=== PATIENT | female | born 1970 | race African-American/Black ===

== ENCOUNTER 2023-07-30 02:37 | Inpatient (IN) | payer BC, SELFPAY ==
[2023-07-30 02:44] VITALS: BMI 28.7
[2023-07-30] MEDS ORDERED: HumaLOG 300 UNITS/3 ML VIAL SC PRN (03:43)
[2023-07-30] MEDS ORDERED: Dextrose 50% Abboject 50 ML SYRINGE SLOW IVP PRN (03:43)
[2023-07-30] MEDS ORDERED: Dextrose 5% in Water 1,000 ML IV PRN (03:43)
[2023-07-30] MEDS ORDERED: Glucagon 1 MG/ML KIT IM PRN (03:43)
[2023-07-30 07:43] LABS: #Monocytes 0.6 thou/uL (0.11-0.59); %Basophils 0.3 % (0.0-1.0); %Eosinophils 0.3 % (0.0-10.0); %Lymphocytes 27.5 % (21.0-51.0); %Monocytes 5.6 % (0.0-10.0); Hematocrit 34.5 % (36.0-47.0); Hemoglobin 11.3 g/dL (12.0-16.0); Mean Corpuscular HGB CONC 32.8 g/dL (32.0-36.0); Mean Corpuscular Hemoglobin 28.6 pg (27.0-31.0); Mean Corpuscular Volume 87.3 fl (78.0-98.0); Mean Platelet Volume 10.9 fL (7.4-10.4); Platelet Count 404 10x3/uL (130-400); RBC Distribution Width 13.5 % (11.5-14.5); Red Blood Cell (RBC) Count 3.95 mill/uL (4.20-5.40); White Blood Cell (WBC) Count 10.5 10x3/uL (4.8-10.8)
[2023-07-30 07:50] LABS: Hemoglobin A1c 7.4 % (4.0-6.0)
[2023-07-30 07:58] LABS: ALT (SGPT) 10 U/L (8-55); AST (SGOT) 12 U/L (5-34); Albumin 2.3 g/dL (3.5-5.0); Alkaline Phosphatase 90 U/L (40-110); Anion Gap 12 mmol/L (10-20); BUN (Urea Nitrogen) 16 mg/dL (9.8-20.1); Bilirubin, Total 0.5 mg/dL (0.2-1.2); Calc. Creatinine Clearance 86 mL/min (70-130); Calcium 8.3 mg/dL (7.8-10.44); Carbon Dioxide 23 mmol/L (22-29); Chloride 109 mmol/L (98-107); Estimated GFR 75; Globulin 3.6 g/dL (2.4-3.5); Glucose 173 mg/dL (70-105); Potassium 3.5 mmol/L (3.5-5.1); Protein, Total 5.9 g/dL (6.0-8.3); Sodium 140 mmol/L (136-145)
[2023-07-30 08:09] LABS: Magnesium 2.3 mg/dL (1.6-2.6)
[2023-07-30 08:23] LABS: Free T4 (Free Thyroxine) 1.11 ng/dL (0.70-1.48); Thyroid Stimulating Hormone 1.6967 uIU/mL (0.35-4.94)
[2023-07-30] MEDS ORDERED: Non-Formulary Item 1 EACH (Ferrous Sulfate [Ferrous Sulfate] 325 MG Tab) PO SCH (09:00)
[2023-07-30] MEDS: Amlodipine 10 MG TAB PO SCH (09:16)
[2023-07-30] MEDS: Atorvastatin Calcium 40 MG TAB PO SCH (09:16)
[2023-07-30] MEDS: Famotidine 20 MG TAB PO SCH (09:16)
[2023-07-30] MEDS: Alogliptin 6.25 MG TAB PO SCH (09:17)
[2023-07-30] MEDS: Insulin Glargine 30 UNITS/0.3 ML VIAL SC SCH ×2 (09:18→20:58)
[2023-07-30] MEDS: metFORMIN 500 MG TAB PO SCH (09:18)
[2023-07-30] MEDS: Empagliflozin 10 MG TAB PO SCH (09:18)
[2023-07-30 10:18] LABS: Creatinine, Urine 69.93 mg/dL (47-110)
[2023-07-30] MEDS: Cosyntropin 250 MCG VIAL SLOW IVP SCH (11:47)
[2023-07-30] MEDS: Albumin 25% 25 GM (100 mL) BOT IVPB SCH (11:48)
[2023-07-30] MEDS: Acetaminophen 325 MG TAB PO PRN (12:17)
[2023-07-30] MEDS: Ondansetron ODT 4 MG TAB PO PRN (12:18)
[2023-07-30] MEDS: HumaLOG 300 UNITS/3 ML VIAL SC PRN (12:18)
[2023-07-30] MEDS ORDERED: Cosyntropin 250 MCG VIAL SLOW IVP SCH (13:15)
[2023-07-30] MEDS: Losartan 25 MG TAB PO SCH ×2 (13:30→20:57)
[2023-07-30] MEDS: Dexamethasone 10 MG in Sodium Chloride 0.9% 50 ML IVPB SCH (15:01)
[2023-07-30] MEDS: Carvedilol 6.25 MG TAB PO SCH (17:26)
[2023-07-30] MEDS: Lactated Ringer's 1,000 ML IV SCH (17:36)
[2023-07-31 07:59] LABS: #Monocytes 0.8 thou/uL (0.11-0.59); #Neutrophils 9.5 thou/uL (1.40-6.50); %Basophils 0.2 % (0.0-1.0); %Eosinophils 0.1 % (0.0-10.0); %Lymphocytes 20.9 % (21.0-51.0); %Monocytes 6.4 % (0.0-10.0); %Neutrophils 71.9 % (42.0-75.0); Hematocrit 31.7 % (36.0-47.0); Hemoglobin 10.5 g/dL (12.0-16.0); Mean Corpuscular HGB CONC 33.1 g/dL (32.0-36.0); Mean Corpuscular Hemoglobin 28.8 pg (27.0-31.0); Mean Corpuscular Volume 86.8 fl (78.0-98.0); Mean Platelet Volume 9.7 fL (7.4-10.4); Platelet Count 350 10x3/uL (130-400); RBC Distribution Width 13.2 % (11.5-14.5); Red Blood Cell (RBC) Count 3.65 mill/uL (4.20-5.40); White Blood Cell (WBC) Count 13.1 10x3/uL (4.8-10.8)
[2023-07-31 08:15] LABS: Anion Gap 13 mmol/L (10-20); BUN (Urea Nitrogen) 19 mg/dL (9.8-20.1); Calc. Creatinine Clearance 92 mL/min (70-130); Calcium 8.3 mg/dL (7.8-10.44); Carbon Dioxide 24 mmol/L (22-29); Chloride 105 mmol/L (98-107); Estimated GFR 81; Glucose 125 mg/dL (70-105); Potassium 3.6 mmol/L (3.5-5.1); Sodium 138 mmol/L (136-145)
[2023-07-31] MEDS: Ferrous Sulfate 325 MG TAB PO SCH (08:24)
[2023-07-31] MEDS: Hydrochlorothiazide 25 MG TAB PO SCH (15:12)
[2023-08-01 05:55] LABS: #Eosinphils 0.2 thou/uL (0.0-0.7); #Monocytes 0.6 thou/uL (0.11-0.59); #Neutrophils 7.6 thou/uL (1.40-6.50); %Basophils 0.2 % (0.0-1.0); %Eosinophils 1.4 % (0.0-10.0); %Lymphocytes 26.7 % (21.0-51.0); %Monocytes 5.3 % (0.0-10.0); Hematocrit 32.3 % (36.0-47.0); Hemoglobin 10.6 g/dL (12.0-16.0); Mean Corpuscular HGB CONC 32.8 g/dL (32.0-36.0); Mean Corpuscular Hemoglobin 28.2 pg (27.0-31.0); Mean Corpuscular Volume 85.9 fl (78.0-98.0); Platelet Count 356 10x3/uL (130-400); RBC Distribution Width 13.2 % (11.5-14.5); Red Blood Cell (RBC) Count 3.76 mill/uL (4.20-5.40); White Blood Cell (WBC) Count 11.6 10x3/uL (4.8-10.8)
[2023-08-01 06:07] LABS: Anion Gap 11 mmol/L (10-20); BUN (Urea Nitrogen) 21 mg/dL (9.8-20.1); Calc. Creatinine Clearance 95 mL/min (70-130); Calcium 8.1 mg/dL (7.8-10.44); Carbon Dioxide 26 mmol/L (22-29); Chloride 105 mmol/L (98-107); Estimated GFR 83; Glucose 80 mg/dL (70-105); Potassium 3.3 mmol/L (3.5-5.1); Sodium 139 mmol/L (136-145)
[2023-08-01 08:21] VITALS: TEMP 98.3
[2023-08-01] MEDS: Hydrochlorothiazide 25 MG TAB PO SCH (09:29)
[2023-08-01 13:58] VITALS: BP 94/55
[2023-08-01 16:15] LABS: Kappa Lambda Light Chain Ratio 1.88 (0.26-1.65); Kappa Light Chains 65.4 mg/L (3.3-19.4); Lambda Light Chain 34.8 mg/L (5.7-26.3)
[2023-08-01 17:22] LABS: 24 Hr Creatinine 438.7 mg/24 hr (710-1650); Creatinine, Urine 42.8 mg/dL (47-110)
[2023-08-02 15:18] LABS: IgA - Total IgA (Sendout) 284 mg/dL (87-352); Immunoglobulin - G (Sendout) 1018 mg/dL (586-1602); Immunoglobulin - M (Sendout) 140 mg/dL (26-217)
[2023-08-02 16:12] LABS: A/G Ratio 1.1 (0.7-1.7); Albumin 2.8 g/dL (2.9-4.4); Alpha 1 0.2 g/dL (0.0-0.4); Alpha 2 0.6 g/dL (0.4-1.0); Beta 0.8 g/dL (0.7-1.3); Globulin, Total 2.6 g/dL (2.2-3.9); M-Spike Not Observed g/dL (Not Observed)
== END 2023-08-01 13:35 | disposition home or self-care (01) | DRG 312 ==
LOC: 2NO 02:37 → OBSVTOIN 08:07
PROVIDERS: ADMIT Student in an Organized Health Care Education/Training Program; ATTEND Hospitalist
PROC: 30233J1 Transfusion of Nonautologous Serum Albumin into Peripheral Vein, Percutaneous Approach (ICD-10-PCS; principal; 2023-07-30)
DX: I95.1 Orthostatic hypotension (principal); N17.9 Acute kidney failure, unspecified; E86.0 Dehydration; I12.9 Hypertensive chronic kidney disease with stage 1 through stage 4 chronic kidney disease, or unspecified chronic kidney disease; R32 Unspecified urinary incontinence; E88.09 Other disorders of plasma-protein metabolism, not elsewhere classified; K76.0 Fatty (change of) liver, not elsewhere classified; R80.9 Proteinuria, unspecified; E11.22 Type 2 diabetes mellitus with diabetic chronic kidney disease; D63.1 Anemia in chronic kidney disease; N18.2 Chronic kidney disease, stage 2 (mild); E87.6 Hypokalemia; Z79.4 Long term (current) use of insulin; Z79.899 Other long term (current) drug therapy
CPT/HCPCS: 36415; 36416; 76705; 80048; 80053; 80400; 82088; 82570; 83036; 83735; 83835; 83880; 83883; 84155; 84156; 84165; 84244; 84439; 84443; 84481; 85025; 86140; 86334; 93005; 93010; G0378; J0834; J1100; J1815; J7120; P9047; Q0162

== ENCOUNTER 2023-08-16 08:07 | Day surgery (SDC) | payer OTHER ==
[2023-08-16 09:03] LABS: INR-International Normal Ratio 0.9; Prothrombin Time 12.1 sec (12.0-14.7)
[2023-08-16 09:04] LABS: PTT 33.9 sec (22.9-36.1)
[2023-08-16] MEDS ORDERED: fentaNYL 50 mcg/mL 1 mL Vial ONE (10:05)
[2023-08-16] MEDS ORDERED: Sodium Bicarbonate 2.5 MEQ/5 ML SDV ONE (10:05)
[2023-08-16] MEDS ORDERED: Lidocaine 1% PF 5 ML VIAL ONE (10:05)
[2023-08-16] MEDS ORDERED: Midazolam HCl 2 mg/2 ml Vial ONE (10:05)
== END 2023-08-16 14:30 | disposition home or self-care (01) ==
LOC: CT 08:07
PROVIDERS: ATTEND Internal Medicine Nephrology
PROC: 0TB03ZX Excision of Right Kidney, Percutaneous Approach, Diagnostic (ICD-10-PCS; principal; 2023-08-16)
DX: I12.9 Hypertensive chronic kidney disease with stage 1 through stage 4 chronic kidney disease, or unspecified chronic kidney disease (principal); N18.30 Chronic kidney disease, stage 3 unspecified; E11.22 Type 2 diabetes mellitus with diabetic chronic kidney disease; I95.1 Orthostatic hypotension; N28.9 Disorder of kidney and ureter, unspecified; R80.9 Proteinuria, unspecified; Z79.4 Long term (current) use of insulin; Z79.899 Other long term (current) drug therapy
CPT/HCPCS: 36415; 50200; 77012; 85610; 85730; 88329; J2250; J3010